=== PATIENT | female | born 1975 | race Caucasian/White ===

== ENCOUNTER 2025-05-18 17:32 | Inpatient (IN) | payer MEDICARE, MEDICAID ==
[~2025-05-18] VITALS: Ht 170.2 cm; Wt 108.4 kg
[2025-05-18] MEDS ORDERED: LUBI24CA40 PO (18:25)
[2025-05-18] MEDS ORDERED: ONDA-104 PO (18:26)
[2025-05-18] MEDS ORDERED: CYAN500T56 PO (18:26)
[2025-05-18] MEDS ORDERED: LAMO-24 PO (18:26)
[2025-05-18] MEDS ORDERED: PARO-38 PO (18:26)
[2025-05-18] MEDS ORDERED: FERR325T27 PO (18:26)
[2025-05-18] MEDS ORDERED: OLAN7.5T22 PO (18:26)
[2025-05-18] MEDS ORDERED: LEVO100 PO (18:26)
[2025-05-18] MEDS ORDERED: CLON-595 PO (18:26)
[2025-05-18] MEDS ORDERED: DESM0.1T6 PO (18:26)
[2025-05-18] MEDS ORDERED: METH1TAB66 PO (18:26)
[2025-05-18] MEDS ORDERED: GLYC1TAB27 PO (18:26)
[2025-05-18] MEDS ORDERED: RIVA20TA PO (18:26)
[2025-05-18] MEDS ORDERED: DOCU-412 PO (18:26)
[2025-05-18] MEDS ORDERED: RISP-32 PO (18:26)
[2025-05-18] MEDS ORDERED: CALC500T37 PO (18:26)
[2025-05-18] MEDS ORDERED: BISA10SU11 PR (18:26)
[2025-05-18] MEDS: LORazepam 2 MG/ML VIAL IM ONE (19:15)
[2025-05-18 19:51] LABS: COVID AG,FIA SOURCE NASAL SWAB
[2025-05-18] MEDS: ZIPRASIDONE MESYLATE 20 MG/VIAL IM ONE (20:13)
[2025-05-18 20:20] LABS: SARS-COV2 (COVID) ANTIGEN,FIA Negative (Negative)
[2025-05-18 21:38] LABS: CALCIUM, TOTAL 9.6 mg/dL (8.8-10.5); CREATININE 0.77 mg/dL (0.60-1.30); GLOMERULAR FILTR. RATE CALC > 60 mL/min (>60); GLUCOSE,RANDOM 107 mg/dL (70-110); SODIUM SERUM 145 mmol/L (136-145); UREA NITROGEN, BLOOD 11 mg/dL (7-18)
[2025-05-18 21:41] LABS: PLATELET COUNT (AUTO) 337 K/uL (150-450); RED BLOOD CELL COUNT(AUTO) 4.94 MIL/uL (4.00-5.20); RED CELL DISTRIBUTION WIDTH 14.0 % (11.5-14.5); WHITE BLOOD COUNT (AUTO) 8.2 K/uL (4.5-11.0)
[2025-05-18 21:53] LABS: APPEARANCE,URINE CLEAR (CLEAR); GLUCOSE, URINE (UA) NEGATIVE (NEGATIVE); LEUKOCYTE ESTERASE ,URINE MODERATE (NEGATIVE); NITRATE,URINE NEGATIVE (NEGATIVE); OCCULT BLOOD,URINE NEGATIVE (NEGATIVE); PH,URINE DRUG SCREEN 7.5 (5.0-8.0); SPECIFIC GRAVITIY, URINE 1.005 (1.003-1.030)
[2025-05-18 22:00] LABS: AMPHET/METH SCREEN,URINE NEGATIVE (NEGATIVE); BARBITURATE SCREEN, URINE NEGATIVE (NEGATIVE); CANNABINOID SCREEN,URINE NEGATIVE (NEGATIVE); COCAINE SCREEN,URINE NEGATIVE (NEGATIVE); METHADONE SCREEN, URINE NEGATIVE (NEGATIVE)
[2025-05-18 22:01] LABS: ALCOHOL, URINE DRUG SCREEN NEGATIVE (NEGATIVE)
[2025-05-18 22:08] LABS: SQUAMOUS EPITHELIAL CELL,UR Rare /LPF (None Seen)
[2025-05-18] MEDS: LIDOCAINE/PF 1% 2 ML VIAL IM ONE (22:40)
[2025-05-18] MEDS: CefTRIAXone SODIUM 1 GM/VIAL IM ONE (22:40)
[2025-05-19] MEDS: LORazepam 2 MG/ML VIAL IM ONE (01:15)
[2025-05-19] MEDS ORDERED: BISACODYL 10 MG RECTAL RECTAL SUPPOSITORY PR PRN (01:15)
[2025-05-19] MEDS ORDERED: CALCIUM CARBONATE 500 MG CHEWABLE TABLET CHEW PRN (01:15)
[2025-05-19] MEDS ORDERED: ONDANSETRON 4 MG TABLET PO PRN (01:15)
[2025-05-19] MEDS: LEVOTHYROXINE SODIUM 100 MCG TABLET PO SCH (08:21)
[2025-05-19] MEDS: LUBIPROSTONE 24 MCG CAPSULE PO SCH (09:48)
[2025-05-19] MEDS: DESMOPRESSIN ACETATE 0.1 MG TABLET PO SCH (09:49)
[2025-05-19] MEDS: METHENAMINE HIPPURATE 1 GM TABLET PO SCH (09:49)
[2025-05-19] MEDS: CYANOCOBALAMIN 500 MCG TABLET PO SCH (09:49)
[2025-05-19] MEDS: RIVAROXABAN 20 MG TABLET PO SCH (16:43)
[2025-05-19] MEDS: ZOLPIDEM TARTRATE 10 MG TABLET PO PRN (20:30)
[2025-05-20] MEDS: GLYCOPYRROLATE 1 MG TABLET PO SCH (03:48)
[2025-05-20] MEDS: OLANZapine 7.5 MG TABLET PO SCH (03:49)
[2025-05-20] MEDS: DOCUSATE SODIUM 250 MG CAPSULE PO SCH (03:49)
[2025-05-20 05:32] LABS: PLATELET COUNT (AUTO) 323 K/uL (150-450); RED BLOOD CELL COUNT(AUTO) 4.73 MIL/uL (4.00-5.20); RED CELL DISTRIBUTION WIDTH 13.6 % (11.5-14.5); WHITE BLOOD COUNT (AUTO) 6.2 K/uL (4.5-11.0)
[2025-05-20 05:55] LABS: ASPARTATE AMINOTRANSFERASE 19 U/L (15-37); CALCIUM, TOTAL 9.1 mg/dL (8.8-10.5); CHOL/HDL RATIO 4.3 (3.9-5.7); CREATININE 0.77 mg/dL (0.60-1.30); GLOMERULAR FILTR. RATE CALC > 60 mL/min (>60); GLUCOSE,RANDOM 116 mg/dL (70-110); LDL CHOL (CALC.) 118 mg/dL (0-130); SODIUM SERUM 143 mmol/L (136-145); TOTAL PROTEIN, SERUM 7.5 g/dL (6.4-8.2); UREA NITROGEN, BLOOD 13 mg/dL (7-18)
[2025-05-20 19:04] VITALS: BP 110/67; PULSE 79; RESP 18; TEMP 97.5; O2SAT 100
[2025-05-20 19:07] VITALS: BP 110/67; PULSE 79; RESP 18; TEMP 97.5; O2SAT 100
[2025-05-20 20:47] LABS: ASPARTATE AMINOTRANSFERASE 26 U/L (15-37); CALCIUM, TOTAL 9.3 mg/dL (8.8-10.5); CREATININE 0.77 mg/dL (0.60-1.30); GLOMERULAR FILTR. RATE CALC > 60 mL/min (>60); GLUCOSE,RANDOM 91 mg/dL (70-110); SODIUM SERUM 145 mmol/L (136-145); TOTAL PROTEIN, SERUM 7.7 g/dL (6.4-8.2); UREA NITROGEN, BLOOD 13 mg/dL (7-18)
[2025-05-20 22:15] VITALS: BP 119/88; PULSE 90; RESP 18; TEMP 97.9; O2SAT 99
[2025-05-21] MEDS ORDERED: LEVOTHYROXINE SODIUM 100 MCG TABLET PO SCH (07:00)
[2025-05-21] MEDS: NITROFURANTOIN MONOHYD/M-CRYST 100 MG CAPSULE [MACROBID] PO SCH (08:48)
[2025-05-21] MEDS: FERROUS SULFATE 325 MG EC TABLET PO SCH (08:49)
[2025-05-21] MEDS ORDERED: DESMOPRESSIN ACETATE 0.1 MG TABLET PO SCH (09:00)
[2025-05-21] MEDS ORDERED: MAG HYDROX/ALUMINUM HYD/SIMETH ES 30 ML SUSPENSION UDCUP PO PRN (09:15)
[2025-05-21] MEDS ORDERED: PETROLATUM,WHITE 28 GM JELLY TP PRN (09:15)
[2025-05-21] MEDS ORDERED: BACITRACIN 28 GM OINTMENT TP PRN (09:15)
[2025-05-21] MEDS ORDERED: OMEPRAZOLE 20 MG CAPSULE PO PRN (09:15)
[2025-05-21] MEDS ORDERED: MAGNESIUM HYDROXIDE SUSPENSION 30 ML UDCUP PO PRN (09:15)
[2025-05-21] MEDS ORDERED: DEXTROSE 50%-WATER 25 GM/50 ML SYRINGE IVP PRN (09:15)
[2025-05-21] MEDS ORDERED: ALBUTEROL SULFATE HFA 90 MCG/PUFF 8 GM INHALER IH PRN (09:15)
[2025-05-21] MEDS ORDERED: ACETAMINOPHEN 325 MG TABLET PO PRN (09:15)
[2025-05-21] MEDS ORDERED: BENZOCAINE/MENTHOL [CEPACOL] LOZENGE PO PRN (09:15)
[2025-05-21] MEDS ORDERED: LOPERAMIDE HCL 2 MG CAPSULE PO PRN (09:15)
[2025-05-21] MEDS ORDERED: DOCUSATE SODIUM 100 MG CAPSULE PO PRN (09:15)
[2025-05-21 10:43] VITALS: BP 105/61; PULSE 82; RESP 17; TEMP 97.8; O2SAT 98
[2025-05-21] MEDS: INSULIN LISPRO 100 UNITS/ML SQ PRN (18:00)
[2025-05-21 18:21] LABS: GLUCOMETER DEV NAME(LOC) 3E.C; GLUCOSE,POINT OF CARE 110 MG/DL (70-110)
[2025-05-21 20:36] LABS: GLUCOMETER DEV NAME(LOC) 3E.C; GLUCOSE,POINT OF CARE 125 MG/DL (70-110)
[2025-05-21 20:56] VITALS: RESP 18; TEMP 98.2
[2025-05-22 06:51] LABS: GLUCOMETER DEV NAME(LOC) 3E.C; GLUCOSE,POINT OF CARE 105 MG/DL (70-110)
[2025-05-22 07:24] LABS: CHOL/HDL RATIO 4.4 (3.9-5.7); LDL CHOL (CALC.) 100.0 mg/dL (0-130)
[2025-05-22 10:56] VITALS: BP 88/53; PULSE 91; RESP 18; TEMP 98; O2SAT 96
[2025-05-22 11:56] LABS: GLUCOMETER DEV NAME(LOC) 3E.C; GLUCOSE,POINT OF CARE 134 MG/DL (70-110)
[2025-05-22 17:05] LABS: GLUCOMETER DEV NAME(LOC) 3E.C; GLUCOSE,POINT OF CARE 110 MG/DL (70-110)
[2025-05-22 20:25] VITALS: RESP 18; TEMP 98.1
[2025-05-22 21:16] LABS: GLUCOMETER DEV NAME(LOC) 3E.C; GLUCOSE,POINT OF CARE 104 MG/DL (70-110)
[2025-05-23 06:21] LABS: GLUCOMETER DEV NAME(LOC) 3E.C; GLUCOSE,POINT OF CARE 111 MG/DL (70-110)
[2025-05-23 10:03] VITALS: BP 126/73; PULSE 81; RESP 16; TEMP 98; O2SAT 95
[2025-05-23 12:11] LABS: GLUCOMETER DEV NAME(LOC) 3E.C; GLUCOSE,POINT OF CARE 119 MG/DL (70-110)
[2025-05-23 13:58] VITALS: BP 120/72; PULSE 111; RESP 18
[2025-05-23 18:38] VITALS: RESP 18
[2025-05-23] MEDS: IBUPROFEN 600 MG TABLET PO PRN (18:38)
[2025-05-23 18:51] LABS: GLUCOMETER DEV NAME(LOC) 3E.C; GLUCOSE,POINT OF CARE 101 MG/DL (70-110)
[2025-05-23 20:22] VITALS: BP 123/72; PULSE 80; RESP 18; TEMP 97.8; O2SAT 97
[2025-05-23 21:11] LABS: GLUCOMETER DEV NAME(LOC) 3E.C; GLUCOSE,POINT OF CARE 183 MG/DL (70-110)
[2025-05-24 06:36] LABS: GLUCOMETER DEV NAME(LOC) 3E.C; GLUCOSE,POINT OF CARE 104 MG/DL (70-110)
[2025-05-24 10:05] VITALS: BP 121/82; PULSE 74; RESP 18; TEMP 97.4; O2SAT 100
[2025-05-24] MEDS: DESMOPRESSIN ACETATE 0.2 MG TABLET PO SCH (10:13)
[2025-05-24 12:25] LABS: GLUCOMETER DEV NAME(LOC) 3E.C; GLUCOSE,POINT OF CARE 117 MG/DL (70-110)
[2025-05-24 18:30] LABS: GLUCOMETER DEV NAME(LOC) 3E.C; GLUCOSE,POINT OF CARE 133 MG/DL (70-110)
[2025-05-24 20:46] VITALS: BP 125/76; PULSE 76; RESP 19; TEMP 97.9; O2SAT 96
[2025-05-24] MEDS: VALPROIC ACID 250 MG/5 ML SOLUTION UDCUP PO SCH (21:05)
[2025-05-24 21:16] LABS: GLUCOMETER DEV NAME(LOC) 3E.C; GLUCOSE,POINT OF CARE 165 MG/DL (70-110)
[2025-05-25 07:10] LABS: GLUCOMETER DEV NAME(LOC) 3E.C; GLUCOSE,POINT OF CARE 156 MG/DL (70-110)
[2025-05-25 10:21] VITALS: BP 165/102; PULSE 91; RESP 18; TEMP 97.8; O2SAT 96
[2025-05-25 11:36] LABS: GLUCOMETER DEV NAME(LOC) 3E.C; GLUCOSE,POINT OF CARE 180 MG/DL (70-110)
[2025-05-25 17:46] LABS: GLUCOMETER DEV NAME(LOC) 3E.C; GLUCOSE,POINT OF CARE 124 MG/DL (70-110)
[2025-05-25 21:06] LABS: GLUCOMETER DEV NAME(LOC) 3E.C; GLUCOSE,POINT OF CARE 127 MG/DL (70-110)
[2025-05-25 21:15] VITALS: BP 140/86; PULSE 92; RESP 18; TEMP 97.8; O2SAT 98
[2025-05-26 06:41] LABS: GLUCOMETER DEV NAME(LOC) 3E.C; GLUCOSE,POINT OF CARE 148 MG/DL (70-110)
[2025-05-26 08:40] VITALS: BP 123/71; PULSE 77; RESP 18; TEMP 97.7; O2SAT 100
[2025-05-26 11:50] LABS: GLUCOMETER DEV NAME(LOC) 3E.C; GLUCOSE,POINT OF CARE 149 MG/DL (70-110)
[2025-05-26 17:46] LABS: GLUCOMETER DEV NAME(LOC) 3E.C; GLUCOSE,POINT OF CARE 116 MG/DL (70-110)
[2025-05-26 22:20] VITALS: RESP 18
[2025-05-26] MEDS: ONDANSETRON 4 MG TABLET PO PRN (23:09)
[2025-05-27 09:42] VITALS: BP 126/92; PULSE 94; RESP 16; TEMP 98.1; O2SAT 98
[2025-05-27 12:15] LABS: GLUCOMETER DEV NAME(LOC) 3E.C; GLUCOSE,POINT OF CARE 125 MG/DL (70-110)
[2025-05-27 17:06] LABS: GLUCOMETER DEV NAME(LOC) 3E.C; GLUCOSE,POINT OF CARE 96 MG/DL (70-110)
[2025-05-27 20:33] VITALS: RESP 18
[2025-05-27 21:25] LABS: GLUCOMETER DEV NAME(LOC) 3E.C; GLUCOSE,POINT OF CARE 125 MG/DL (70-110)
[2025-05-28 06:51] LABS: GLUCOMETER DEV NAME(LOC) 3E.C; GLUCOSE,POINT OF CARE 121 MG/DL (70-110)
[2025-05-28 09:00] VITALS: RESP 18
[2025-05-28 11:50] LABS: GLUCOMETER DEV NAME(LOC) 3E.C; GLUCOSE,POINT OF CARE 133 MG/DL (70-110)
[2025-05-28 17:50] LABS: GLUCOMETER DEV NAME(LOC) 3E.C; GLUCOSE,POINT OF CARE 89 MG/DL (70-110)
[2025-05-28 20:07] VITALS: BP 108/58; PULSE 80; RESP 18; TEMP 98.7; O2SAT 97
[2025-05-28 20:30] LABS: GLUCOMETER DEV NAME(LOC) 3E.C; GLUCOSE,POINT OF CARE 106 MG/DL (70-110)
[2025-05-29 06:11] LABS: GLUCOMETER DEV NAME(LOC) 3E.C; GLUCOSE,POINT OF CARE 83 MG/DL (70-110)
[2025-05-29 09:51] VITALS: BP 112/90; PULSE 74; RESP 18; TEMP 97.9; O2SAT 99
[2025-05-29 12:10] LABS: GLUCOMETER DEV NAME(LOC) 3E.C; GLUCOSE,POINT OF CARE 128 MG/DL (70-110)
[2025-05-29] MEDS ORDERED: HALO10TA21 PO (16:04)
[2025-05-29] MEDS ORDERED: DIPH25CA53 PO (16:04)
[2025-05-29] MEDS ORDERED: LAMO-24 PO (16:04)
[2025-05-29] MEDS ORDERED: PARO-37 PO (16:04)
[2025-05-29] MEDS ORDERED: GLYC1TAB27 PO (16:04)
[2025-05-29] MEDS ORDERED: DIVA-153 PO (16:04)
[2025-05-29] MEDS ORDERED: TRAZ-252 PO (16:04)
[2025-05-29 17:26] LABS: GLUCOMETER DEV NAME(LOC) 3E.C; GLUCOSE,POINT OF CARE 75 MG/DL (70-110)
[2025-05-29 20:36] LABS: GLUCOMETER DEV NAME(LOC) 3E.C; GLUCOSE,POINT OF CARE 109 MG/DL (70-110)
[2025-05-29 22:11] VITALS: BP 99/84; PULSE 83; RESP 18; TEMP 97.8; O2SAT 97
[2025-05-30 05:40] LABS: GLUCOMETER DEV NAME(LOC) 3E.C; GLUCOSE,POINT OF CARE 78 MG/DL (70-110)
[2025-05-30 11:47] VITALS: BP 103/56; PULSE 74; RESP 18; TEMP 97.8; O2SAT 96
[2025-05-30 11:50] LABS: GLUCOMETER DEV NAME(LOC) 3E.C; GLUCOSE,POINT OF CARE 78 MG/DL (70-110)
== END 2025-05-30 18:26 | DRG 885 ==
LOC: EMS 17:32 → EDBEDREQSVC 05-19 08:41 → 3EC 05-20 16:52
PROVIDERS: ADMIT Psychiatry & Neurology Psychiatry; ATTEND Psychiatry & Neurology Psychiatry
PROC: GZ56ZZZ Individual Psychotherapy, Supportive (ICD-10-PCS; 2025-05-21)
PROC: GZHZZZZ Group Psychotherapy (ICD-10-PCS; principal; 2025-05-30)
DX: F25.0 Schizoaffective disorder, bipolar type (principal); N39.0 Urinary tract infection, site not specified; R45.851 Suicidal ideations; E03.9 Hypothyroidism, unspecified; I10 Essential (primary) hypertension; F41.9 Anxiety disorder, unspecified; G47.00 Insomnia, unspecified; G40.909 Epilepsy, unspecified, not intractable, without status epilepticus; E11.9 Type 2 diabetes mellitus without complications; K59.00 Constipation, unspecified; F32.A Depression, unspecified; D64.9 Anemia, unspecified; E66.9 Obesity, unspecified; R53.81 Other malaise; Z20.822 Contact with and (suspected) exposure to COVID-19; G30.9 Alzheimer's disease, unspecified; Z60.8 Other problems related to social environment; Z79.01 Long term (current) use of anticoagulants; Z79.899 Other long term (current) drug therapy; Z85.3 Personal history of malignant neoplasm of breast; Z86.718 Personal history of other venous thrombosis and embolism; Z68.37 Body mass index [BMI] 37.0-37.9, adult; Z88.8 Allergy status to other drugs, medicaments and biological substances
CPT/HCPCS: 80048; 80053; 80061; 80164; 80307; 81001; 82962; 83036; 84436; 84439; 84443; 85025; 87081; 87086; 93005; 96372; 99285; G0480; J0696; J1200; J1630; J2060; J3486; J3490; Q0162

== ENCOUNTER 2025-06-13 13:31 | Inpatient (IN) | payer MEDICARE, OTHER ==
[~2025-06-13] VITALS: Ht 170.2 cm; Wt 109.1 kg
[~2025-06-13 13:31] MED LIST: CLOZ100T12 PO; CLOZ25TA52 PO; CYAN500T56 PO; DESM0.1T6 PO; DIPH25CA53 PO; DIVA-153 PO; DOCU-412 PO; FERR325T27 PO; GLYC1TAB27 PO; HALO10TA21 PO; LAMO-24 PO; LEVO100 PO; LEVO175T9 PO; LUBI24CA40 PO; METH1TAB66 PO; PARO-37 PO; RIVA20TA PO; TAMO10TA45 PO; TRAZ-252 PO; VALP250S23 PO
[2025-06-13 14:43] LABS: PLATELET COUNT (AUTO) 283 K/uL (150-450); RED BLOOD CELL COUNT(AUTO) 4.91 MIL/uL (4.00-5.20); RED CELL DISTRIBUTION WIDTH 13.8 % (11.5-14.5); WHITE BLOOD COUNT (AUTO) 6.8 K/uL (4.5-11.0)
[2025-06-13 14:51] LABS: CALCIUM, TOTAL 9.2 mg/dL (8.8-10.5); CREATININE 0.89 mg/dL (0.60-1.30); GLOMERULAR FILTR. RATE CALC > 60 mL/min (>60); GLUCOSE,RANDOM 85 mg/dL (70-110); SODIUM SERUM 137 mmol/L (136-145); UREA NITROGEN, BLOOD 11 mg/dL (7-18)
[2025-06-13] MEDS ORDERED: LORA2I IM (15:02)
[2025-06-13] MEDS ORDERED: VALB80CA PO (15:02)
[2025-06-13 15:20] LABS: ASPARTATE AMINOTRANSFERASE 17.0 U/L (15-37); TOTAL PROTEIN, SERUM 7.7 g/dL (6.4-8.2)
[2025-06-13 15:28] LABS: COVID AG,FIA SOURCE NASAL SWAB
[2025-06-13] MEDS: FLUCONAZOLE 150 MG TABLET PO ONE (15:51)
[2025-06-13] MEDS ORDERED: ZOLPIDEM TARTRATE 10 MG TABLET PO PRN (16:30)
[2025-06-13 17:13] LABS: SARS-COV2 (COVID) ANTIGEN,FIA Negative (Negative)
[2025-06-13 18:32] LABS: PH,URINE DRUG SCREEN 6.0 (5.0-8.0)
[2025-06-13 18:36] LABS: ALCOHOL, URINE DRUG SCREEN NEGATIVE (NEGATIVE); AMPHET/METH SCREEN,URINE NEGATIVE (NEGATIVE); BARBITURATE SCREEN, URINE NEGATIVE (NEGATIVE); CANNABINOID SCREEN,URINE NEGATIVE (NEGATIVE); COCAINE SCREEN,URINE NEGATIVE (NEGATIVE); METHADONE SCREEN, URINE NEGATIVE (NEGATIVE)
[2025-06-13 18:41] VITALS: O2SAT 100
[2025-06-13 18:50] LABS: APPEARANCE,URINE HAZY (CLEAR); GLUCOSE, URINE (UA) NEGATIVE (NEGATIVE); LEUKOCYTE ESTERASE ,URINE LARGE (NEGATIVE); NITRATE,URINE NEGATIVE (NEGATIVE); OCCULT BLOOD,URINE TRACE (NEGATIVE); SPECIFIC GRAVITIY, URINE 1.007 (1.003-1.030)
[2025-06-13 18:57] LABS: SQUAMOUS EPITHELIAL CELL,UR Few /LPF (None Seen)
[2025-06-13] MEDS: CEPHALEXIN MONOHYDRATE 500 MG CAPSULE PO ONE (20:29)
[2025-06-13 21:00] VITALS: BP 112/80; PULSE 76; RESP 17; TEMP 97.7; O2SAT 98
[2025-06-13] MEDS ORDERED: DIVALPROEX SODIUM 250 MG ER TABLET PO SCH (21:00)
[2025-06-13] MEDS ORDERED: GLYCOPYRROLATE 1 MG TABLET PO SCH (21:00)
[2025-06-14] MEDS ORDERED: INFLUENZA VIRUS VACCINE TVS (6MO+) 2025-26/PF 45 MCG/0.5 ML SYRINGE IM. ONE (04:30)
[2025-06-14] MEDS: LEVOTHYROXINE SODIUM 100 MCG TABLET PO SCH (06:35)
[2025-06-14] MEDS: FERROUS SULFATE 325 MG EC TABLET PO SCH (06:35)
[2025-06-14 08:08] VITALS: BP 120/71; PULSE 76; RESP 18; TEMP 97.5; O2SAT 97
[2025-06-14] MEDS: CYANOCOBALAMIN 500 MCG TABLET PO SCH (08:44)
[2025-06-14] MEDS: DESMOPRESSIN ACETATE 0.1 MG TABLET PO SCH (08:44)
[2025-06-14] MEDS: SULFAMETHOX/TRIMETH DS 800-160 MG/TABLET PO SCH (16:41)
[2025-06-14 20:08] VITALS: BP 108/62; PULSE 85; RESP 18; TEMP 97.5; O2SAT 96
[2025-06-14] MEDS: GLYCOPYRROLATE 1 MG TABLET PO SCH (20:39)
[2025-06-14] MEDS: DIVALPROEX SODIUM 250 MG ER TABLET PO SCH (20:39)
[2025-06-14] MEDS ORDERED: DOCUSATE SODIUM 250 MG CAPSULE PO PRN (21:00)
[2025-06-14] MEDS ORDERED: DOCUSATE SODIUM 100 MG CAPSULE PO SCH (21:00)
[2025-06-15 12:10] VITALS: BP 132/90; PULSE 74; RESP 18; TEMP 97.4; O2SAT 100
[2025-06-15 20:30] VITALS: BP 94/71; PULSE 74; RESP 16; TEMP 98.2; O2SAT 97
[2025-06-16 10:20] VITALS: BP 105/77; PULSE 71; RESP 18; TEMP 98.2; O2SAT 100
[2025-06-16 20:10] VITALS: BP 103/69; PULSE 74; RESP 18; TEMP 97.8; O2SAT 100
[2025-06-17 11:09] VITALS: BP 96/72; PULSE 69; RESP 18; TEMP 97.7; O2SAT 98
[2025-06-17] MEDS ORDERED: DIVA-85 PO (16:26)
[2025-06-17 21:45] VITALS: BP 105/73; PULSE 79; RESP 18; TEMP 97.4; O2SAT 95
[2025-06-18 08:32] VITALS: BP 96/69; PULSE 68; RESP 16; TEMP 97.6; O2SAT 100
[2025-06-18] MEDS ORDERED: HALO10TA21 PO (09:53)
[2025-06-18] MEDS ORDERED: DIPH25CA85 PO (09:53)
[2025-06-18] MEDS ORDERED: TRAZ-257 PO (09:53)
[2025-06-18] MEDS ORDERED: PARO-37 PO (09:53)
[2025-06-18] MEDS ORDERED: DIVA-85 PO (09:53)
[2025-06-18] MEDS ORDERED: FERR325T27 PO (14:25)
[2025-06-18] MEDS ORDERED: SULF1TAB42 PO (14:27)
== END 2025-06-18 17:20 | DRG 885 ==
LOC: EMS 13:37 → 3EC 20:56
PROVIDERS: ADMIT Psychiatry & Neurology Psychiatry; ATTEND Psychiatry & Neurology Psychiatry
PROC: GZHZZZZ Group Psychotherapy (ICD-10-PCS; principal; 2025-06-13)
PROC: GZ58ZZZ Individual Psychotherapy, Cognitive-Behavioral (ICD-10-PCS; 2025-06-13)
PROC: GZ56ZZZ Individual Psychotherapy, Supportive (ICD-10-PCS; 2025-06-13)
DX: F25.9 Schizoaffective disorder, unspecified (principal); E03.9 Hypothyroidism, unspecified; E11.9 Type 2 diabetes mellitus without complications; E66.9 Obesity, unspecified; F31.9 Bipolar disorder, unspecified; Z55.9 Problems related to education and literacy, unspecified; Z68.37 Body mass index [BMI] 37.0-37.9, adult; Z20.822 Contact with and (suspected) exposure to COVID-19; Z85.3 Personal history of malignant neoplasm of breast; Z65.3 Problems related to other legal circumstances; Z63.9 Problem related to primary support group, unspecified; Z59.9 Problem related to housing and economic circumstances, unspecified
CPT/HCPCS: 80048; 80076; 80164; 80307; 81001; 84439; 84443; 84703; 85025; 87081; 87086; 99285; G0480